=== PATIENT | male | born 1990 | race Caucasian/White ===

== ENCOUNTER 2020-09-14 22:01 | Emergency (ER) | payer BC, OTHER ==
[~2020-09-14] VITALS: Ht 175.3 cm; Wt 75.0 kg
[2020-09-15] MEDS ORDERED: DIPH,PERTUSS(ACELL),TET VAC/PF 0.5 ML IM-VACC ONE (00:30)
[2020-09-15] MEDS ORDERED: LIDOCAINE 1%-EPI 1:100K, 20ML SQ ONE (00:30)
[2020-09-15] MEDS ORDERED: LIDOCAINE-MPF 1%, 5ML ONE (01:25)
--- NOTE | 2020-09-15 01:30 | NUR ---
PT PRESENTS TO ER WITH GIRLFRIEND AT BEDSIDE, PT STATES HE WAS AT HOME AND LIVES IN AN OLD HOUSE AND WHEN HE WENT TO GO OPEN THE WINDOW THE WINDOW PANE FELL AND BROKE ON HIS LEFT FOREARM, PT PRESENTS WITH A LACERATION, TENDON VISIBLE, PT A/OX4 AND BLEEDING IS CONTROLED
--- NOTE | 2020-09-15 01:55 | NUR ---
BREAK RN: PT. PROVIDED WITH URINAL. DENIES OTHER NEEDS.
[2020-09-15 03:48] VITALS: BP 115/72
== END 2020-09-15 03:50 | disposition home or self-care (01) ==
LOC: ED 23:45
DX: S51.812A Laceration without foreign body of left forearm, initial encounter (principal); S61.012A Laceration without foreign body of left thumb without damage to nail, initial encounter; Z87.891 Personal history of nicotine dependence; X58.XXXA Exposure to other specified factors, initial encounter; Y93.89 Activity, other specified; Y92.009 Unspecified place in unspecified non-institutional (private) residence as the place of occurrence of the external cause; Y99.8 Other external cause status
CPT/HCPCS: 12032; 12041; 99285